=== PATIENT | female | born 1935 | race Caucasian/White ===

== ENCOUNTER 2022-04-05 02:12 | Emergency (ER) | payer MEDICARE, BC ==
[~2022-04-05] VITALS: Ht 149.9 cm; Wt 69.5 kg
[2022-04-05] MEDS ORDERED: CHOL20002 PO (03:15)
[2022-04-05] MEDS ORDERED: CLAR10CA3 PO (03:15)
[2022-04-05] MEDS ORDERED: PANT40TA29 PO (03:15)
[2022-04-05] MEDS ORDERED: ALBU2.5V10 INH (03:15)
[2022-04-05] MEDS ORDERED: SPIR1CAP INH (03:15)
[2022-04-05] MEDS ORDERED: SING10TA32 PO (03:15)
[2022-04-05] MEDS ORDERED: LOSA100T45 PO (03:15)
[2022-04-05] MEDS ORDERED: HYDR12.55 PO (03:15)
[2022-04-05] MEDS ORDERED: PROAAER10 INH (03:15)
[2022-04-05] MEDS ORDERED: CLOT1CRE56 TOP (03:15)
[2022-04-05] MEDS ORDERED: GNP250TA9 PO (03:15)
[2022-04-05] MEDS ORDERED: ADV250INH INH (03:15)
[2022-04-05] MEDS ORDERED: VERA120C PO (03:15)
[2022-04-05] MEDS ORDERED: SYNT112T2 PO (03:15)
[2022-04-05] MEDS ORDERED: PRAV20TA2 PO (03:15)
[2022-04-05] MEDS ORDERED: BISO5TAB14 PO (03:15)
[2022-04-05] MEDS ORDERED: BETA5CR TOP (03:15)
[2022-04-05] MEDS ORDERED: ELIQ5TAB PO (03:15)
[2022-04-05] MEDS ORDERED: ACET325C5 PO (03:15)
[2022-04-05 03:26] LABS: BASO % 0.2 % (0.0-1.0); HEMATOCRIT 34.5 % (36.0-47.0); HEMOGLOBIN 11.5 g/dl (12.0-15.5); LYMPH # 1.5 10^3/uL (1.5-5.0); LYMPH % 24.9 % (24.0-44.0); MEAN CORPUSCULAR HEMOGLOBIN 29.3 pg (27.0-33.0); MEAN CORPUSCULAR HGB CONC 33.3 g/dl (32.0-36.5); MONO # 0.7 10^3/uL (0.0-0.8); MONO % 12.2 % (2.0-8.0); NEUTROPHILS # 3.7 10^3/uL (1.5-8.5); NEUTROPHILS % 62.4 % (36.0-66.0); PLATELET COUNT, AUTOMATED 263 10^3/uL (150-450); RED BLOOD COUNT 3.92 10^6/uL (4.00-5.40)
[2022-04-05 03:49] LABS: BILIRUBIN,DIRECT 0.2 MG/DL (0.0-0.2); BILIRUBIN,TOTAL 0.6 MG/DL (0.2-1.0); CALCIUM LEVEL 9.3 MG/DL (8.8-10.2); CREATININE FOR GFR 1.05 MG/DL (0.55-1.30); GLOMERULAR FILTRATION RATE 52.7 (>32); POTASSIUM SERUM 3.9 MEQ/L (3.5-5.1); TOTAL PROTEIN 7.5 GM/DL (6.4-8.2)
[2022-04-05 03:50] LABS: CK-MB VALUE MASS 9.7 NG/ML (<3.6); MB/CK RELATIVE INDEX 1.84 (< OR =4)
[2022-04-05] MEDS ORDERED: methylPREDNISolone 125MG 2ML VIAL IV ONE (07:20)
[2022-04-05] MEDS ORDERED: IPRATROPIUM 0.5MG/ALBUTEROL 2.5MG INH SOL UD 3ML (DUONEB) NEB ONE ×2 (07:20)
[2022-04-05] MEDS ORDERED: VERAPAMIL 40 MG TAB PO ONE (07:25)
[2022-04-05] MEDS ORDERED: bisoproloL fumarate 5 MG TAB PO ONE (07:25)
[2022-04-05] MEDS ORDERED: LOSARTAN 50MG TABLET PO ONE (07:25)
[2022-04-05] MEDS ORDERED: cefTRIAXone SOD 1 GM in D5W MINI-BAG PLUS 50 ML IV ONE (08:05)
[2022-04-05] MEDS ORDERED: AZITHROMYCIN INJ 500 MG, VIAL MATE ADAPTER 1 EACH in NS 250 ML IV ONE (08:05)
[2022-04-05 12:30] VITALS: BP 169/77
== END 2022-04-05 13:05 | disposition short-term general hospital (02) ==
LOC: M ED 02:12 → EDBD 02:12 → M ED 13:05
DX: J44.1 Chronic obstructive pulmonary disease with (acute) exacerbation (principal); J18.9 Pneumonia, unspecified organism; I21.4 Non-ST elevation (NSTEMI) myocardial infarction; J45.909 Unspecified asthma, uncomplicated; I25.10 Atherosclerotic heart disease of native coronary artery without angina pectoris; I48.91 Unspecified atrial fibrillation; Z79.899 Other long term (current) drug therapy; Z79.890 Hormone replacement therapy; Z79.51 Long term (current) use of inhaled steroids; Z79.01 Long term (current) use of anticoagulants; Z87.891 Personal history of nicotine dependence
CPT/HCPCS: 71045; 80048; 80076; 82550; 82553; 84484; 85025; 87486; 87581; 87633; 87798; 93005; 93041; 94640; 94760; 96365; 96367; 96375; 99285; J0456; J0696; J2930